=== PATIENT | female | born 1960 | race Hispanic/Latino ===

== ENCOUNTER 2022-05-14 21:38 | Emergency (ER) | payer MEDICARE, OTHER ==
[~2022-05-14] VITALS: Ht 152.4 cm; Wt 95.3 kg
[2022-05-14] MEDS ORDERED: MECLIZINE HCL 12.5 MG TAB PO STA (21:58)
[2022-05-14] MEDS ORDERED: MECLIZINE HCL 12.5 MG TAB ONE (22:43)
[2022-05-15] MEDS ORDERED: MECLIZINE HCL12.5 MG PO (00:58)
[2022-05-15] MEDS ORDERED: IOPAMIDOL 370 MG/ML 100 ML INFUS..BTL INJ ONE (01:06)
== END 2022-05-15 01:16 | disposition home or self-care (01) ==
LOC: FSED 21:43
DX: R42 Dizziness and giddiness (principal); I10 Essential (primary) hypertension; F41.9 Anxiety disorder, unspecified
CPT/HCPCS: 70496; 70498; 93005; 99284; J8597; Q9967

== ENCOUNTER 2023-02-03 16:44 | Emergency (ER) | payer OTHER ==
[~2023-02-03] VITALS: Ht 152.4 cm; Wt 96.6 kg
[~2023-02-03 16:44] MED LIST: MECLIZINE HCL12.5 MG PO
[2023-02-03] MEDS ORDERED: CEFDINIR300 MG PO (17:30)
[2023-02-03] MEDS ORDERED: DEXAMETHASONE SOD PHOS 10 MG/1 ML VIAL IM ONE (17:30)
[2023-02-03] MEDS ORDERED: PREDNISONE20 MG PO (17:30)
[2023-02-03] MEDS ORDERED: BROMFED DM COU118 ML PO (17:30)
[2023-02-03] MEDS ORDERED: CEFTRIAXONE 1 GM VIAL IM ONE (17:30)
[2023-02-03] MEDS ORDERED: DEXAMETHASONE SOD PHOS INJ 4 MG/ML SDV ONE (17:32)
[2023-02-03] MEDS ORDERED: CEFTRIAXONE 1 GM VIAL ONE (17:33)
== END 2023-02-03 17:48 | disposition home or self-care (01) ==
LOC: FSED 17:00
DX: R05.9 Cough, unspecified (principal); J20.9 Acute bronchitis, unspecified; J01.00 Acute maxillary sinusitis, unspecified; I10 Essential (primary) hypertension; R73.03 Prediabetes; F41.9 Anxiety disorder, unspecified
CPT/HCPCS: 83518; 87400; 99282; J0696; J1100

== ENCOUNTER 2023-03-29 16:48 | Emergency (ER) | payer MEDICARE ==
[~2023-03-29] VITALS: Ht 152.4 cm; Wt 96.6 kg
[~2023-03-29 16:48] MED LIST changes: +BROMFED DM COU118 ML PO; +CEFDINIR300 MG PO; +PREDNISONE20 MG PO
[2023-03-29] MEDS ORDERED: SODIUM CHLORIDE FLUSH 10 ML SYR IV PRN (17:15)
[2023-03-29 17:25] LABS: BASOPHILS % 0.2 % (0.0-1.0); EOSINOPHILS % 0.2 % (0.0-6.0); HEMATOCRIT 42.3 % (34.2-44.1); HEMOGLOBIN 13.9 g/dL (12.0-16.0); LYMPHOCYTES # (AUTO) 2.5 (1.0-3.2); LYMPHOCYTES % 24.9 % (18.0-39.1); MEAN CORPUSCULAR HEMOGLOBIN 27.4 pg (28-32); MEAN CORPUSCULAR HGB CONC 32.9 g/dL (31-35); MEAN CORPUSCULAR VOLUME 83.3 fL (81-99); MONOCYTES # (AUTO) 0.8 (0.2-0.8); MONOCYTES % 7.9 % (4.4-11.3); NEUTROPHILS # (AUTO) 6.7 (2.1-6.9); NEUTROPHILS % 66.4 % (38.7-80.0); PLATELET COUNT 174 x10e3/uL (140-360); RED BLOOD COUNT 5.08 x10e6/uL (3.6-5.1); RED CELL DISTRIBUTION WIDTH 14.2 % (11.7-14.4)
[2023-03-29 17:30] LABS: INR 1.12
[2023-03-29 17:31] LABS: PARTIAL THROMBOPLASTIN TIME 28.6 seconds (23.8-35.5)
[2023-03-29 17:38] LABS: ALBUMIN 3.4 g/dL (3.5-5.0); ANION GAP 13.1 mmol/L (8-16); CALCIUM 8.9 mg/dL (8.4-10.2); CREATININE, SERUM 0.72 mg/dL (0.57-1.11); POTASSIUM 4.1 mmol/L (3.5-5.1)
[2023-03-29 18:06] LABS: CLARITY,URINE CLEAR (CLEAR); COLOR,URINE YELLOW (YELLOW); KETONES,URINE NEGATIVE (NEGATIVE); LEUKOCYTE ESTERASE ,URINE NEGATIVE (NEGATIVE); NITRITE,URINE NEGATIVE (NEGATIVE); PROTEIN,URINE DIPSTICK NEGATIVE (NEGATIVE); URINE UROBILINOGEN 0.2 mg/dL (0.2 - 1)
[2023-03-29 18:15] LABS: EPITHELIAL CELLS,URINE FEW /LPF; RBC,URINE 0-5 /HPF (0-5)
[2023-03-29 18:22] VITALS: O2SAT 100
[2023-03-29] MEDS ORDERED: ASPIRIN 325 MG TAB PO ONE (18:30)
[2023-03-29] MEDS ORDERED: IOPAMIDOL 370 MG/ML 100 ML INFUS..BTL INJ ONE (19:46)
== END 2023-03-29 19:15 | disposition other institution (70) ==
LOC: ER 16:59
DX: R20.2 Paresthesia of skin (principal); I63.9 Cerebral infarction, unspecified; R53.1 Weakness; I10 Essential (primary) hypertension; F41.9 Anxiety disorder, unspecified
CPT/HCPCS: 36415; 70450; 70496; 70498; 71045; 80053; 81001; 82948; 83880; 84484; 85025; 85610; 85730; 93005; 94760; 99284; Q9967

== ENCOUNTER 2023-07-27 15:22 | Emergency (ER) | payer MEDICARE ==
[~2023-07-27] VITALS: Ht 152.4 cm; Wt 96.6 kg
[2023-07-27 16:00] VITALS: O2SAT 97
== END 2023-07-27 16:49 | disposition home or self-care (01) ==
LOC: FSED 15:49
DX: R21 Rash and other nonspecific skin eruption (principal); R23.3 Spontaneous ecchymoses; E11.65 Type 2 diabetes mellitus with hyperglycemia; I10 Essential (primary) hypertension; Z20.822 Contact with and (suspected) exposure to COVID-19
CPT/HCPCS: 71045; 99283

== ENCOUNTER 2024-01-17 23:09 | Emergency (ER) | payer MEDICARE ==
[~2024-01-17] VITALS: Ht 152.4 cm; Wt 106.6 kg
[2024-01-17 23:34] LABS: BASOPHILS # (AUTO) 0.1 (0.0-0.1); BASOPHILS % 0.8 % (0.0-1.0); EOSINOPHILS # (AUTO) 0.2 (0.0-0.4); EOSINOPHILS % 2.9 % (0.0-6.0); HEMATOCRIT 40.7 % (34.2-44.1); HEMOGLOBIN 13.7 g/dL (12.0-16.0); LYMPHOCYTES # (AUTO) 2.7 (1.0-3.2); LYMPHOCYTES % 35.6 % (18.0-39.1); MEAN CORPUSCULAR HEMOGLOBIN 28.4 pg (28-32); MEAN CORPUSCULAR HGB CONC 33.7 g/dL (31-35); MEAN CORPUSCULAR VOLUME 84.3 fL (81-99); MONOCYTES # (AUTO) 0.5 (0.2-0.8); MONOCYTES % 6.1 % (4.4-11.3); NEUTROPHILS # (AUTO) 4.1 (2.1-6.9); NEUTROPHILS % 54.5 % (38.7-80.0); RED BLOOD COUNT 4.83 x10e6/uL (3.6-5.1); RED CELL DISTRIBUTION WIDTH 13.9 % (11.7-14.4); WHITE BLOOD COUNT 7.51 x10e3/uL (4.8-10.8)
[2024-01-17 23:39] LABS: PLATELET COUNT 157 x10e3/uL (140-360)
[2024-01-17] MEDS: ONDANSETRON HCL INJ 2MG/ML 2ML 2 MG/ML VIAL IV STA (23:50)
[2024-01-17] MEDS: SODIUM CHLORIDE 0.9% 1000ML 1,000 ML IV ONE (23:50)
[2024-01-18 00:02] LABS: BILIRUBIN,URINE NEGATIVE (NEGATIVE); CLARITY,URINE CLEAR (CLEAR); COLOR,URINE YELLOW (YELLOW); GLUCOSE, URINE NEGATIVE (NEGATIVE); KETONES,URINE NEGATIVE (NEGATIVE); LEUKOCYTE ESTERASE ,URINE NEGATIVE (NEGATIVE); NITRITE,URINE NEGATIVE (NEGATIVE); PH,URINE 6.5 (5 - 7); PROTEIN,URINE DIPSTICK NEGATIVE (NEGATIVE); URINE UROBILINOGEN 0.2 mg/dL (0.2 - 1)
[2024-01-18 00:06] LABS: BACTERIA,URINE FEW /HPF; EPITHELIAL CELLS,URINE FEW /LPF; HYALINE CASTS 0-1 (0-1); MUCUS,URINE RARE (RARE); RBC,URINE 0-5 /HPF (0-5); WBC,URINE (MAN) 0-5 /HPF (0-5)
[2024-01-18 00:19] LABS: ALBUMIN 3.5 g/dL (3.5-5.0); ALBUMIN/GLOBULIN RATIO 1.1 (0.8-2.0); ANION GAP 14.7 mmol/L (8-16); BILIRUBIN,TOTAL 0.9 mg/dL (0.2-1.2); CALCIUM 9.8 mg/dL (8.4-10.2); CREATININE, SERUM 0.67 mg/dL (0.57-1.11); POTASSIUM 3.7 mmol/L (3.5-5.1); TOTAL PROTEIN 6.8 g/dL (6.5-8.1)
[2024-01-18] MEDS ORDERED: IOPAMIDOL 370 MG/ML 100 ML INFUS..BTL INJ ONE (00:49)
[2024-01-18] MEDS: METOCLOPRAMIDE HCL 10 MG/2ML VIAL IV ONE (01:13)
[2024-01-18] MEDS: HYDROCODONE/APAP 10MG-325MG TAB PO ONE (01:52)
[2024-01-18 03:19] VITALS: BP 137/67; O2SAT 100
== END 2024-01-18 03:10 | disposition home or self-care (01) ==
LOC: ER 23:13
DX: R10.13 Epigastric pain (principal); R11.10 Vomiting, unspecified; I10 Essential (primary) hypertension; E11.9 Type 2 diabetes mellitus without complications; Z86.73 Personal history of transient ischemic attack (TIA), and cerebral infarction without residual deficits; F41.9 Anxiety disorder, unspecified; E78.5 Hyperlipidemia, unspecified; M19.90 Unspecified osteoarthritis, unspecified site
CPT/HCPCS: 36415; 74177; 80053; 81001; 83690; 84484; 85025; 93005; 99284; J2405; J2765; J7030; Q9967